=== PATIENT | female | born 1990 | race Native Hawaiian/Other Pacific Islander ===

== ENCOUNTER 2022-05-16 17:00 | Emergency (ER) | payer SELFPAY ==
[2022-05-16 20:18] LABS: Bacteria,Urine 3+ /HPF (Negative); Mucus,Urine 3+ /HPF
[2022-05-16 20:26] LABS: Color,Urine Yellow (Yellow)
[2022-05-16 21:58] LABS: Basophils % (Auto) 0.4 % (0.0-1.8); Eosinophils # (Auto) 0.4 K/mm3 (0.0-0.4); Eosinophils % (Auto) 3.3 % (0.0-4.3); Hematocrit 35.9 % (30.3-42.9); Hemoglobin 12.2 gm/dl (10.1-14.3); Lymphocytes # (Auto) 3.9 K/mm3 (1.2-5.4); Lymphocytes % (Auto) 32.3 % (13.4-35.0); Mean Corpuscular HGB Conc 34 % (30-34); Mean Corpuscular Volume 86 fl (79-97); Monocytes # (Auto) 0.5 K/mm3 (0.0-0.8); Monocytes % (Auto) 4.3 % (0.0-7.3); Platelet Count 360 K/mm3 (140-440); Red Blood Count 4.18 M/mm3 (3.65-5.03); Red Cell Distribution Width 12.9 % (13.2-15.2)
[2022-05-16 22:17] LABS: Blood Urea Nitrogen 9 mg/dL (7-17); Calcium 9.3 mg/dL (8.4-10.2); Hemolysis Index 7
[2022-05-16 22:29] LABS: BUN/Creatinine Ratio 23
[2022-05-17] MEDS ORDERED: SODIUM CHLORIDE 0.9% 1000 ML 1,000 ML IV ONE (04:11)
--- NOTE | 2022-05-17 04:36 | Emergency Department Report ---
ED HPI - General Chief complaint: Vaginal Bleeding Stated complaint: 6WKS PREG VAG BLEEDING Time Seen by Provider: 05/17/22 04:04 Source: patient Mode of arrival: Ambulatory Limitations: No Limitations - History of Present Illness Initial comments: Patient is a 31-year-old 4 para 2-0-1-2 with previous spontaneous AB presents with a last menstrual period of 721 and a positive test last week who states that she started having some spotting 1 week ago and last night it became bright red blood. She has had some pelvic cramping bilaterally. She soaked 3 pads in the last 24 hours. She has had some generalized fatigue no fe linda chills. No urinary symptoms no vaginal discharge prior to onset of symptoms. She has not had an ultrasound this . Blood type uncertain. Her first visit is scheduled for the . MD Complaint: abdominal pain, vaginal bleeding Onset/Timin -: week(s) (But worsening last night.) Location: pelvis (Bilaterally) Radiation: none Severity scale (0 -10): 4 Quality: cramping Consistency: intermittent Improves with: none Worsens with: none Associated symptoms: denies: nausea/vomiting, dysuria, vision changes, malaise, dysparuenia, rash, shortness of breath, syncope, weakness Vaginal bleeding: light :: Yes Number of weeks : 4 (+4 days) OB History - Current : no complications OB History - Previous Pregnancies: other (Prior spontaneous miscarriage) - Related Data Previous Rx's Medication Instructions Recorded Last Taken Type Vit-Fe Fumar-FA [ 1 tab PO QDAY #30 tablet 05/17/22 Unknown Rx Vitamin] Allergies Allergy/AdvReac Type Severity Reaction Status Date / Time No Known Allergies Allergy Unverified 05/16/22 19:21 ED Review of Systems ROS: Stated complaint: 6WKS PREG VAG BLEEDING Other details as noted in HPI Comment: All other systems reviewed and negative Constitutional: denies: chills, fever Eyes: denies: vision change ENT: denies: throat pain, congestion Respiratory: denies: cough, shortness of breath Cardiovascular: denies: chest pain, palpitations, edema Endocrine: denies: excessive sweating, intolerance to cold, intolerance to heat, increased thirst Gastrointestinal: as per HPI. denies: nausea, vomiting, diarrhea, constipation Genitourinary: denies: urgency, dysuria, frequency, discharge Musculoskeletal: denies: back pain Skin: denies: rash, lesions Neurological: denies: headache, weakness, numbness, paresthesias Psychiatric: denies: anxiety, depression Hematological/Lymphatic: denies: easy bleeding, easy bruising ED Past Medical Hx - Past Medical History Previous Medical History?: No - Surgical History Past Surgical History?: Yes Additional Surgical History: clogged breast duct - Social History Smoking Status: Never Smoker Substance Use Type: None - Medications Home Medications: Home Medications Medication Instructions Recorded Confirmed Last Taken Type Vit-Fe Fumar-FA [ 1 tab PO QDAY #30 tablet 05/17/22 Unknown Rx Vitamin] ED Physical Exam - General Limitations: No Limitations General appearance: alert, in no apparent distress - Head Head exam: Present: atraumatic, normocephalic - Eye Eye exam: Present: normal appearance. Absent: scleral icterus, conjunctival i njection - ENT ENT exam: Present: mucous membranes moist - Neck Neck exam: Present: normal inspection - Respiratory Respiratory exam: Present: normal lung sounds bilaterally. Absent: respiratory distress, wheezes, rales - Cardiovascular Cardiovascular Exam: Present: regular rate, normal rhythm, normal heart sounds - GI/Abdominal GI/Abdominal exam: Present: soft, tenderness (Mild suprapubic), normal bowel sounds. Absent: distended, guarding, rebound, rigid - External exam: Present: normal external exam Speculum exam: Present: vaginal bleeding (Scant), other (Cervical os is closed/multiparous) Bi-manual exam: Present: normal bi-manual exam. Absent: cervical motion tendernes, adnexal tenderness - Extremities Exam Extremities exam: Present: normal inspection, full ROM - Back Exam Back exam: Present: normal inspection, full ROM - Neurological Exam Neurological exam: Present: alert, oriented X3 - Psychiatric Psychiatric exam: Present: normal affect, normal mood - Skin Skin exam: Present: warm, dry, intact ED Course Vital Signs 05/16/22 19:21 Temperature 98.8 F Pulse Rate 72 Respiratory 18 Rate Blood Pressure 121/52 O2 Sat by Pulse 100 Oximetry - Reevaluation(s) Reevaluation #1: 05/17/22 08:03 Minimal bleeding throughout her ER stay. Minimal cramping. 05/17/22 08:30 ED Medical Decision Making - Lab Data Result diagrams: 05/16/22 21:34 05/16/22 21:34 - Radiology Data Radiology results: report reviewed [facility] [address] [place] [address] Ultrasound Report Signed Patient: BRIAN GRECO MR#: [id number] : 1990 Acct:[id number] Age/Sex: 31 / F ADM Date: 05/16/22 Loc: ED Attending Dr: Ordering Physician: DANA HARMON Date of Service: 05/17/22 Procedure(s): US OB transvaginal Accession Number(s): [id number] cc: DANA HARMON ULTRASOUND OBSTETRIC INDICATION: 1st trimester bleed. TECHNIQUE: Transabdominal and Transvaginal. COMPARISON: None available. FINDINGS: No intrauterine or ectopic is identified. The uterus measures 9.3 x 5.7 x 5.3 cm with expected appearance. The endometrium is thickened and measures 15 mm without other significant abnormalities. The ovaries are symmetric in size with expected appearance and color flow. No adnexal mass is seen. No free fluid is identified. IMPRESSION: No sonographic visualization of an intrauterine or ectopic or other acute findings. Please correlate with the clinical findings. Signer Name: Maikel Carrero MD Signed: 05/17/2022 7:46 AM Workstation Name: [id number] Transcribed By: DAVID Dictated By: Maikel Carrero MD Electronically Authenticated By: Maikel Carrero MD Signed Date/Time: 05/17/22745 DD/ 2 TD/TT: Print - Medical Decision Making Likely spontaneous AB but cannot rule out ectopic. We will have her follow-up in 48 hours here or with her OB for repeat serum quant. Urine likely contaminated. I did attempt to call her OB however they are closed today. She does not know the name of the physician but has a [place]-speaking clinic number. She has not seen them yet but has an appointment . She understands that she should call their office tomorrow morning and if she is unable to be seen Tuesday she needs to return here. - Differential Diagnosis Spontaneous AB. Ectopic . Critical care attestation.: If time is entered above; I have spent that time in minutes in the direct care of this critically ill patient, excluding procedure time. ED Disposition Clinical Impression: First trimester bleeding Disposition: HOME / SELF CARE / HOMELESS Is pt being admited?: No Condition: Stable Instructions: Vaginal Bleeding During , First Trimester Additional Instructions: Follow-up with your OB or here in 48 hours for repeat serum quantitative hCG/lab test. Call their office first thing tomorrow morning. Return if any worsening of symptoms (soaking more than 1 pad per hour, fever, worsening abdominal pain, fatigue). Prescriptions: Vit-Fe Fumar-FA [ Vitamin] 1 tab PO QDAY #30 tablet Referrals: ZEV NAVARRO MD [Primary Care Provider] - 3-5 Days Forms: Work/School Release Form(ED) Time of Disposition: 08:41
--- NOTE | 2022-05-17 07:50 | Ultrasound Report ---
ULTRASOUND OBSTETRIC INDICATION: 1st trimester bleed. TECHNIQUE: Transabdominal and Transvaginal. COMPARISON: None available. FINDINGS: No intrauterine or ectopic is identified. The uterus measures 9.3 x 5.7 x 5.3 cm with expected appearance. The endometrium is thickened and estrada sures 15 mm without other significant abnormalities. The ovaries are symmetric in size with expected appearance and color flow. No adnexal mass is seen. No free fluid is identified. IMPRESSION: No sonographic visualization of an intrauterine or ectopic or other acute findings. Please correlate with the clinical findings. Signer Name: Maikel Carrero MD Signed: 05/17/2022 7:46 AM Workstation Name: [id number]
[2022-05-17 08:37] VITALS: BP 107/65
== END 2022-05-17 08:53 | disposition home or self-care (01) ==
LOC: ED 17:00
DX: O20.8 Other hemorrhage in early pregnancy (principal); Z3A.01 Less than 8 weeks gestation of pregnancy
CPT/HCPCS: 36415; 76801; 76817; 80048; 81001; 84702; 85025; 86850; 86900; 86901; 87086; 96360; 99284; J7030